=== PATIENT | male | born 1970 | race Caucasian/White ===

== ENCOUNTER 2024-06-29 10:38 | Day surgery (SDC) | payer OTHER ==
[~2024-06-29 10:38] MED LIST: ADVIL200 MG PO; BAYER ASPIRIN E81 MG PO
[2024-06-29] MEDS ORDERED: FAMOTIDINE 10MG/ML 2ML SDV IV ONE (11:36)
[2024-06-29] MEDS ORDERED: LACTATED RINGER'S 1,000 ML IV ONE ×3 (11:37→14:55)
[2024-06-29] MEDS ORDERED: SODIUM CHLORIDE 0.9% 100 ML IV ONE (11:37)
[2024-06-29] MEDS ORDERED: ceFAZolin Sodium 2 GM/VIAL SDV ONE (11:37)
[2024-06-29] MEDS ORDERED: BUPIVACAINE 133 MG/10 ML VIAL IJ ONE (12:24)
[2024-06-29] MEDS ORDERED: SODIUM CHLORIDE 20 ML/VIAL SDV ONE (12:25)
[2024-06-29] MEDS ORDERED: STERILE WATER FOR IRRIGATION 500 ML BTL IR ONE (12:28)
[2024-06-29] MEDS ORDERED: SODIUM CHLORIDE 1,000 ML BTL IR ONE (12:28)
[2024-06-29] MEDS ORDERED: PERCOCET 5/325M1 TAB PO (14:06)
[2024-06-29 15:43] VITALS: BP 128/82
[2024-06-29] MEDS ORDERED: PROPOFOL 200 MG/20 ML VIAL IV ONE (16:05)
[2024-06-29] MEDS ORDERED: LIDOCAINE HCL 2% 2ML SDV IV ONE (16:05)
[2024-06-29] MEDS ORDERED: KETOROLAC TROMETHAMINE 30 MG/ML SDV IV ONE (16:05)
[2024-06-29] MEDS ORDERED: ONDANSETRON HCl 4 MG/2 ML SDV IV ONE (16:05)
== END 2024-06-29 15:45 | disposition home or self-care (01) | DRG 352 ==
LOC: ORM 10:38
PROVIDERS: ATTEND Surgery
PROC: 0YU50JZ Supplement Right Inguinal Region with Synthetic Substitute, Open Approach (ICD-10-PCS; principal; 2024-06-29)
DX: K40.91 Unilateral inguinal hernia, without obstruction or gangrene, recurrent (principal); D17.6 Benign lipomatous neoplasm of spermatic cord; F17.200 Nicotine dependence, unspecified, uncomplicated
CPT/HCPCS: J0666; J0690; J2405